=== PATIENT | male | born 1960 | race Caucasian/White ===

== ENCOUNTER 2022-06-05 08:43 | Emergency (ER) | payer OTHER, SELFPAY ==
[2022-06-05 09:02] VITALS: BP 129/66; PULSE 63; RESP 16; TEMP 36.4; O2SAT 97
--- NOTE | 2022-06-05 09:03 | ED.URI ---
HPI - URI/Sore Throat General Chief Complaint: Upper Respiratory Infection Stated Complaint: cold symptoms,sorethroat Source: patient and RN notes reviewed Mode of arrival: ambulatory Limitations: no limitations History of Present Illness HPI Narrative: 61 y/o male presented for c/o sinus congestion and drainage with sore throat since yesterday. Took antihistamines for symptoms. Denies sick contacts. Denies sob, cough, wheezing, n/v/d/f/c. MD elicited complaint: cough Related Data Home Medications Medication Instructions Recorded Confirmed budesonide-formoterol HFA 160 2 inh inhalation PRN PRN Shortness 06/05/22 06/05/22 mcg-4.5 mcg/actuation aerosol Of Breath Or Wheezing inhaler (Symbicort) rosuvastatin 20 mg tablet 20 mg PO DAILY 06/05/22 06/05/22 Allergies Allergy/AdvReac Type Severity Reaction Status Date / Time No Known Allergies Allergy Verified 06/05/22 09:00 Review of Systems Review of Systems: CONSTITUTIONAL:Denies malaise, chills, sweats, fever EYES: Denies visual changes, redness, or discharge ENT: Reports rhinorrhea, congestion, sinus pain, sore throat CARDIOVASCULAR: Denies chest pain, palpitations, edema RESPIRATORY: Reports cough, post nasal drainage. Denies dyspnea GASTROINTESTINAL: Denies abdominal pain, nausea, vomiting, diarrhea SKIN: Denies rash or itching MUSCULOSKELETAL: Denies myalgia NEUROLOGIC: Denies headache [facility] Past Medical History Medical History (Updated 06/05/22 @ 09:51 by Shirlene Ricketts, [employer]) No pertinent past medical history Exam Narrative: GENERAL: mildly Ill-appearing, nontoxic EYES: PERRLA, conjunctivae clear ENT: Mucous membranes moist. TMs pearly mcclain with dull light reflex bilaterally; no tragal tenderness. Oropharynx erythematous without lesions or exudate, no drooling, no hoarseness, no trismus, uvula midline. No tripod positioning, muffled voice, soft palate or pharyngeal wall bulging NECK: Supple. No lymphadenopathy CHEST: Clear to auscultation, breath sounds equal. HEART: Regular rate and rhythm. No murmur heard. SKIN: Warm, dry, no rash. NEURO: Alert and oriented x3. PSYCH: Normal mood and affect Course Course Emergency Course: Patient is aware of diagnosis, understands and agrees to treatment plan. Anticipatory guidance given. Patient agrees to follow-up as directed and is aware of reasons to seek care at the emergency department. Portions of this record may have been created with voice recognition software Level of Care: Express Care Visit Vital Signs Vital signs: Vital Signs Temperature 97.5 F L 06/05/22 09:02 Pulse Rate 63 06/05/22 09:02 Respiratory Rate 16 06/05/22 09:02 Blood Pressure 129/66 06/05/22 09:02 Pulse Oximetry 97 06/05/22 09:02 Oxygen Delivery Room Air 06/05/22 09:02 Temperature 97.5 F L 06/05/22 09:02 Pulse Rate 63 06/05/22 09:02 Respiratory Rate 16 06/05/22 09:02 Blood Pressure 129/66 06/05/22 09:02 Pulse Oximetry 97 06/05/22 09:02 Oxygen Delivery Room Air 06/05/22 09:03 reviewed MDM - URI/Sore Throat MDM Narrative Medical decision making narrative: Result of neg covid and strep reviewed with pt. Advised supportive measures and signs/symptoms to go to the ER. Pt is appropriate for outpt treatment and f/u. Differential Diagnosis Differential diagnosis: Likely upper respiratory infection, sinusitis and viral infection Lab Data Labs: Lab Results 06/05/22 Range/Units 09:13 POC SARS CoV-2 Ag Negative (Negative) Strep Screen Presumptive Negative *(Reference Range: Negative)* Discharge Plan Discharge Clinical Impression: Upper respiratory infection Qualifiers: URI type: unspecified URI Qualified Code(s): J06.9 - Acute upper respiratory infection, unspecified Patient Disposition: Home, Self-Care Condition: Stable Instructions: Antibiotic Form, Upper Respiratory Infection (ED)
== END 2022-06-05 09:52 | disposition home or self-care (01) ==
PROVIDERS: Emergency Provider Nurse Practitioner Family; PCP Internal Medicine
DX: J06.9 Acute upper respiratory infection, unspecified (principal); Z20.822 Contact with and (suspected) exposure to COVID-19
CPT/HCPCS: 87081; 87426; 87880; 99203; C9803; G0463